=== PATIENT | male | born 1940 | race African-American/Black ===

== ENCOUNTER 2021-12-26 10:35 | Emergency (ER) | payer SELFPAY ==
[~2021-12-26] VITALS: Ht 188 cm; Wt 90.0 kg
[2021-12-26 12:06] VITALS: BP 183/94
[2021-12-26] MEDS ORDERED: BACITRACIN ZINC OINT UDPKT TOP ONE (12:45)
[2021-12-26] MEDS ORDERED: LIDOCAINE HCL/EPINEPHRINE 1%-EPI 1:100,000 20 ML VIAL INFIL ONE (12:45)
== END 2021-12-26 13:58 | disposition home or self-care (01) ==
LOC: ER 10:35
DX: S01.81XA Laceration without foreign body of other part of head, initial encounter (principal); S09.8XXA Other specified injuries of head, initial encounter; I10 Essential (primary) hypertension; W01.198A Fall on same level from slipping, tripping and stumbling with subsequent striking against other object, initial encounter; Y93.9 Activity, unspecified; Y92.9 Unspecified place or not applicable
CPT/HCPCS: 12011; 99283; J3490

== ENCOUNTER 2022-01-28 10:48 | Emergency (ER) | payer SELFPAY ==
[~2022-01-28] VITALS: Ht 177.8 cm; Wt 82.0 kg
[2022-01-28] MEDS ORDERED: SODIUM CHLORIDE 0.9% 1,000 ML IV ONE (11:15)
[2022-01-28 11:36] LABS: BASOPHILS % 0.4 % (0.0-2.0); EOSINOPHILS % 9.6 % (0.0-5.0); HEMATOCRIT. 42.3 % (42.0-52.0); HEMOGLOBIN. 14.3 g/dL (14.0-18.0); LYMPHOCYTES % 37.3 % (20.0-50.0); MEAN CORPUSCULAR HEMOGLOBIN 31.5 pg (28.0-32.0); MEAN CORPUSCULAR VOLUME 93.1 fL (80.0-94.0); MEAN PLATELET VOLUME 9.4 fl (7.4-10.4); MONOCYTES % 8.6 % (2.0-8.0); NEUTROPHILS % 44.1 % (40.0-76.0); PLATELET 217 x1000/uL (130-400); RED BLOOD CELL COUNT 4.54 mill/uL (4.7-6.1); RED CELL DISTRIBUTION WIDTH 13.8 % (11.6-14.6)
[2022-01-28 11:37] LABS: CHLORIDE 106 mEq/L (98-107)
[2022-01-28 11:40] LABS: PROTHROMBIN TIME 11.2 sec (9.6-11.0)
[2022-01-28 11:47] LABS: ETHANOL BLOOD < 10 mg/dL
[2022-01-28] MEDS ORDERED: BACITRACIN ZINC OINT UDPKT TOP ONE (14:45)
[2022-01-28] MEDS ORDERED: LIDOCAINE HCL/EPINEPHRINE 1%-EPI 1:100,000 20 ML VIAL INFIL ONE ×2 (14:45→17:00)
[2022-01-28] MEDS ORDERED: TETANUS, DIPHTHERIA, PERTUSSIS VAC/PF 0.5ML (>10YR OLD) IM ONE ×2 (14:45→17:15)
[2022-01-28] MEDS ORDERED: HYDROCODONE/ACETAMINOPHEN 5/325MG TABLET PO PRN (16:00)
[2022-01-28] MEDS ORDERED: ONDANSETRON HCL 4MG/2ML INJ IV PRN (16:00)
[2022-01-28] MEDS ORDERED: CLONIDINE 0.1MG TABLET PO PRN (16:00)
[2022-01-28] MEDS ORDERED: ACETAMINOPHEN 650MG SUPP PR PRN ×2 (16:00)
[2022-01-28] MEDS ORDERED: MAGNESIUM/ALUMINUM HYDROXIDE/SIMETHICONE 30ML UDC PO PRN (16:00)
[2022-01-28] MEDS ORDERED: GUAIFENESIN 200MG/10ML SUGAR FREE UDC PO PRN (16:00)
[2022-01-28] MEDS ORDERED: ACETAMINOPHEN 325MG TABLET PO PRN ×2 (16:00)
[2022-01-28] MEDS ORDERED: IPRATROPIUM/ALBUTEROL 0.5-3(2.5)MG/3ML NEB HHN PRN (16:00)
[2022-01-28] MEDS ORDERED: DOCUSATE SODIUM 100MG CAPSULE PO PRN (16:00)
[2022-01-28] MEDS ORDERED: NALOXONE HCL 0.4MG/ML VIAL IV PRN (16:30)
[2022-01-28 17:00] VITALS: BP 158/86
[2022-01-28] MEDS: BACITRACIN ZINC OINT UDPKT TOP SCH ×2 (17:01→17:51)
== END 2022-01-28 18:05 | disposition left against medical advice (07) ==
LOC: ER 11:02 → EDBEDREQ 13:51 → ER 18:05 → CANBEDREQ 21:33
DX: R55 Syncope and collapse (principal); S22.32XA Fracture of one rib, left side, initial encounter for closed fracture; S01.111A Laceration without foreign body of right eyelid and periocular area, initial encounter; I10 Essential (primary) hypertension; W01.0XXA Fall on same level from slipping, tripping and stumbling without subsequent striking against object, initial encounter; Y93.89 Activity, other specified; Y92.89 Other specified places as the place of occurrence of the external cause; Y99.8 Other external cause status
CPT/HCPCS: 12011; 36415; 70450; 70486; 71045; 71250; 72125; 74176; 80053; 80320; 83036; 83690; 83735; 83880; 84484; 85025; 85610; 86850; 86870; 86900; 86901; 90715; 96360; 99291; J3490; J7030; G0480